=== PATIENT | female | born 1970 | race Caucasian/White ===

== ENCOUNTER 2021-01-31 18:46 | Inpatient (IN) | payer MEDICAID ==
[~2021-01-31] VITALS: Ht 160 cm; Wt 35.8 kg
[2021-01-31] MEDS ORDERED: PRAZ1 PO (19:14)
[2021-01-31] MEDS ORDERED: TRAZ-257 PO (19:14)
[2021-01-31] MEDS ORDERED: TIZA-194 PO (19:14)
[2021-01-31] MEDS ORDERED: GABA-1181 PO (19:14)
[2021-01-31] MEDS ORDERED: QUET100T PO (19:14)
[2021-01-31] MEDS ORDERED: MIRT45TA83 PO (19:14)
[2021-01-31] MEDS ORDERED: HYD25 PO (19:14)
[2021-01-31 19:45] LABS: AMPHET/METH SCREEN,URINE NEGATIVE (NEGATIVE); BARBITURATE SCREEN, URINE NEGATIVE (NEGATIVE); BENZODIAZEPINES SCREEN,URINE NEGATIVE (NEGATIVE); CANNABINOID SCREEN,URINE NEGATIVE (NEGATIVE); COCAINE SCREEN,URINE NEGATIVE (NEGATIVE); METHADONE SCREEN, URINE NEGATIVE (NEGATIVE); OPIATE SCREEN,URINE NEGATIVE (NEGATIVE)
[2021-01-31 19:46] LABS: PHENCYCLIDINE SCREEN,URINE NEGATIVE (NEGATIVE)
[2021-01-31 19:53] LABS: BASOPHILS % (AUTO) 0.8 % (0.0-2.0); EOSINOPHILS % (AUTO) 0.7 % (1.0-6.0); HEMATOCRIT 37.2 % (36-46); HEMOGLOBIN 12.5 g/dL (12.0-16.0); LYMPHOCYTES # (AUTO) 2.4 K/uL (1.0-4.8); LYMPHOCYTES % (AUTO) 38.2 % (22.0-44.0); MEAN CORPUSCULAR HEMOGLOBIN 35.5 pg (26.0-34.0); MEAN CORPUSCULAR HGB CONC 33.6 G/dL (31.0-37.0); MEAN CORPUSCULAR VOLUME 106 fL (80-100); MONOCYTES # (AUTO) 0.5 K/uL (0.1-1.0); MONOCYTES % (AUTO) 7.3 % (2.0-9.0); NEUTROPHILS # (AUTO) 3.4 K/uL (1.8-7.7); PLATELET COUNT (AUTO) 234 K/uL (150-450); RED BLOOD CELL COUNT(AUTO) 3.53 MIL/uL (4.00-5.20); RED CELL DISTRIBUTION WIDTH 12.8 % (11.5-14.5)
[2021-01-31 20:04] LABS: CALCIUM, TOTAL 9.3 mg/dL (8.8-10.5); CREATININE 1.18 mg/dL (0.60-1.30); POTASSIUM 3.9 mmol/L (3.5-5.1)
[2021-01-31 20:15] LABS: PLATELET MORPHOLOGY COMMENT LARGE PLTS PRESENT
[2021-01-31 20:16] LABS: ALBUMIN 3.4 g/dL (3.4-5.0); BILIRUBIN,TOTAL 0.2 mg/dL (0.1-1.0); TOTAL PROTEIN, SERUM 7.6 g/dL (6.4-8.2)
[2021-01-31 21:05] LABS: COVID AG,FIA SOURCE NASOPHARYNGEAL
[2021-01-31 22:00] VITALS: BP 108/75
[2021-01-31] MEDS: LORazepam 2 MG TABLET PO PRN (23:24)
[2021-02-01] MEDS: ZOLPIDEM TARTRATE 10 MG TABLET PO PRN ×2 (00:21→21:30)
[2021-02-01] MEDS: QUEtiapine FUMARATE 100 MG TABLET PO PRN ×2 (00:21→13:39)
[2021-02-01 00:23] VITALS: BP 106/72
[2021-02-01] MEDS ORDERED: ACETAMINOPHEN 325 MG TABLET PO PRN ×2 (00:45→07:00)
[2021-02-01] MEDS ORDERED: IBUPROFEN 400 MG TABLET PO PRN (00:45)
[2021-02-01] MEDS ORDERED: GuaiFENesin/D-METHORPHAN [SUGAR-FREE] 200-20MG/10 ML SYRUP UDCUP PO PRN (07:00)
[2021-02-01] MEDS ORDERED: ALBUTEROL SULFATE HFA 90 MCG/PUFF 8 GM INHALER IH PRN (07:00)
[2021-02-01] MEDS ORDERED: LOPERAMIDE HCL 2 MG CAPSULE PO PRN (07:00)
[2021-02-01] MEDS ORDERED: DOCUSATE SODIUM 100 MG CAPSULE PO PRN (07:00)
[2021-02-01] MEDS ORDERED: CloNIDine HCL 0.1 MG TABLET PO PRN (07:00)
[2021-02-01] MEDS ORDERED: MAGNESIUM HYDROXIDE SUSPENSION 30 ML UDCUP PO PRN (07:00)
[2021-02-01] MEDS ORDERED: MAG HYDROX/AL HYDROX/SIMETH ES 30 ML SUSPENSION UDCUP PO PRN (07:00)
[2021-02-01] MEDS ORDERED: ONDANSETRON HCL 4 MG TABLET PO PRN (07:00)
[2021-02-01] MEDS ORDERED: PETROLATUM,WHITE 28 GM JELLY TP PRN (07:00)
[2021-02-01] MEDS ORDERED: NICOTINE 14 MG/24 HOUR PATCH TD PRN (07:00)
[2021-02-01 08:00] VITALS: BP 125/62
[2021-02-01] MEDS: LORazepam 2 MG TABLET PO PRN (13:39)
[2021-02-01 16:00] VITALS: BP 102/60
[2021-02-01] MEDS: MIRTAZAPINE 30 MG TABLET PO SCH (20:19)
[2021-02-01] MEDS: TraZODone HCL 100 MG TABLET PO SCH (20:19)
[2021-02-01] MEDS: PRAZOSIN HCL 1 MG CAPSULE PO SCH (20:19)
[2021-02-02 06:19] LABS: HEMOGLOBIN A1C 4.8 % (3.8-5.6)
[2021-02-02 07:42] LABS: ALBUMIN 2.6 g/dL (3.4-5.0); BILIRUBIN,TOTAL 0.3 mg/dL (0.1-1.0); CALCIUM, TOTAL 8.3 mg/dL (8.8-10.5); CREATININE 1.08 mg/dL (0.60-1.30); MAGNESIUM 1.9 mg/dL (1.80-2.40); PHOSPHORUS 3.6 mg/dL (2.5-4.9); POTASSIUM 3.8 mmol/L (3.5-5.1); THYROID STIMULATING HORMONE 2.5 uIU/mL (0.36-3.74); TOTAL PROTEIN, SERUM 5.7 g/dL (6.4-8.2)
[2021-02-02 08:35] VITALS: BP 106/73
[2021-02-02] MEDS: LORazepam 2 MG TABLET PO PRN ×3 (08:36→12:50)
[2021-02-02] MEDS: IBUPROFEN 400 MG TABLET PO PRN ×2 (08:36→19:02)
[2021-02-02] MEDS: QUEtiapine FUMARATE 100 MG TABLET PO PRN ×2 (09:11→13:17)
[2021-02-02] MEDS ORDERED: PANTOPRAZOLE SODIUM 40 MG DR TABLET PO SCH (12:15)
[2021-02-02] MEDS: FOLIC ACID 1 MG TABLET PO SCH (12:41)
[2021-02-02] MEDS: THIAMINE 100 MG TABLET PO SCH (12:41)
[2021-02-02] MEDS: MULTIVITAMINS WITH MINERALS, THERAPEUTIC TABLET PO SCH (12:42)
[2021-02-02 13:47] VITALS: BP 110/76
[2021-02-02 16:00] VITALS: BP 101/68
[2021-02-02] MEDS: TraZODone HCL 100 MG TABLET PO SCH (20:12)
[2021-02-02] MEDS: MIRTAZAPINE 30 MG TABLET PO SCH (20:12)
[2021-02-02] MEDS: PRAZOSIN HCL 1 MG CAPSULE PO SCH (20:13)
[2021-02-02] MEDS: ZOLPIDEM TARTRATE 10 MG TABLET PO PRN (23:44)
[2021-02-03 00:01] VITALS: BP 108/70
[2021-02-03] MEDS ORDERED: PANTOPRAZOLE SODIUM 40 MG DR TABLET PO SCH (09:00)
[2021-02-03] MEDS: MULTIVITAMINS WITH MINERALS, THERAPEUTIC TABLET PO SCH (10:19)
[2021-02-03] MEDS: THIAMINE 100 MG TABLET PO SCH (10:19)
[2021-02-03] MEDS: FOLIC ACID 1 MG TABLET PO SCH (10:19)
[2021-02-03] MEDS: QUEtiapine FUMARATE 100 MG TABLET PO PRN (10:45)
[2021-02-03] MEDS: LORazepam 2 MG TABLET PO PRN (10:45)
[2021-02-03] MEDS ORDERED: TRAZ-257 PO (11:55)
[2021-02-03] MEDS ORDERED: MIRT30 PO (11:55)
[2021-02-03] MEDS ORDERED: PRAZ1 PO (11:55)
[2021-02-03] MEDS ORDERED: THIA100T80 PO (13:14)
[2021-02-03] MEDS ORDERED: FOLI-130 PO (13:14)
[2021-02-03] MEDS ORDERED: PANT-31 PO (13:14)
[2021-02-03] MEDS ORDERED: MULT-1239 PO (13:14)
== END 2021-02-03 14:30 | disposition home or self-care (01) | DRG 751 ==
LOC: EMS 18:49 → 3EI 20:31
DX: F33.3 Major depressive disorder, recurrent, severe with psychotic symptoms (principal); E43 Unspecified severe protein-calorie malnutrition; R45.851 Suicidal ideations; Z20.822 Contact with and (suspected) exposure to COVID-19; F10.20 Alcohol dependence, uncomplicated; E78.5 Hyperlipidemia, unspecified; I12.9 Hypertensive chronic kidney disease with stage 1 through stage 4 chronic kidney disease, or unspecified chronic kidney disease; N18.9 Chronic kidney disease, unspecified; Y90.5 Blood alcohol level of 100-119 mg/100 ml; Z79.899 Other long term (current) drug therapy; Z91.5 Personal history of self-harm; Z68.1 Body mass index [BMI] 19.9 or less, adult
CPT/HCPCS: 80053; 80061; 83036; 83735; 84100; 84443; 85025; 87426; 99285; G0480; Q0162